=== PATIENT | female | born 1965 | race Two or more races ===

== ENCOUNTER 2022-09-24 09:45 | Outpatient (REF) | payer BC, SELFPAY ==
--- NOTE | ~2022-09-24 | MR_ITS ---
EXAMINATION: MR CERVICAL SPINE WITHOUT CONTRAST CLINICAL INFORMATION: 56-year-old with self-reported neck pain, tension headaches, right arm pain and tingling in the fingers. Cervical disc disease. COMPARISON: None TECHNIQUE: MRI of the cervical spine was obtained using routine sequences without contrast. FINDINGS: Alignment: Slight retrolisthesis noted at C5-C6. Cervical lordotic curvature is maintained. Craniocervical Junction/C1-C2 Articulations: Intact and aligned. Visualized Intracranial Structures: Incidental note is made of generalized diffuse cerebellar volume loss, which appears out of proportion to the visualized supratentorial structures. Recommend neurological correlation for this finding. Vertebral Bodies: Mild chronic loss of height along the superior endplate of T1. Otherwise vertebral body heights are well-maintained. Disc Spaces and Endplates: Severe disc space height loss is noted at C5-C6 with disc desiccation and mild spondylosis. Schmorl's node noted along the inferior endplate of C5. Moderate to severe disc space height loss at C6-C7 with Schmorl's nodes, disc desiccation and minor spondylosis. There is a Schmorl's node along the superior endplate of T1. Bone Marrow: No significant marrow-replacing process or bone marrow edema. There is a subcentimeter benign vertebral hemangioma within the C7 vertebral body. C2-C3: Small central disc protrusion with mild indentation of the ventral thecal sac without cord impingement or canal stenosis. No significant DJD or neuroforaminal stenosis. C3-C4: Small central disc protrusion, with indentation of the ventral thecal sac without cord impingement or canal stenosis. Mild facet arthropathy on the left noted without significant neural foraminal stenosis. C4-C5: Broad-based central disc protrusion noted, with flattening of the ventral dural sac without cord compression or significant spinal canal stenosis. There is uncovertebral spurring with minor left-sided facet arthropathy. No significant neural foraminal stenosis. C5-C6: Broad-based disc osteophyte complex noted with effacement of the ventral dural sac resulting in mild ventral cord deformity/impingement with ligamentum flavum thickening or infolding associated with moderate central spinal canal stenosis. There is uncovertebral arthrosis bilaterally with mild to moderate facet arthropathy. There is mild left-sided and moderate right-sided neural foraminal stenosis. C6-C7: Broad-based disc protrusion is noted with bilateral uncovertebral spurring. There is flattening of the ventral dural sac without cord impingement. Ligamentum flavum thickening or infolding is noted with [id number] central spinal canal stenosis. There is mild foraminal narrowing bilaterally. Small perineural cysts are seen in both neural foramina. C7-T1: Mild posterior disc osteophyte complex noted with slight flattening the ventral dural sac without cord impingement or canal stenosis. There is uncovertebral spurring noted bilaterally with minor facet arthropathy, with mild bilateral neural foraminal stenosis. There is a 5 mm perineural cyst in the right neural foramen. Spinal Cord: The cervical and visualized upper thoracic spinal cord is normal in signal intensity throughout, without focal lesion, edema or syrinx. Extracranial Soft Tissues: The visualized extracranial head/neck soft tissues are unremarkable within the limitations of the study. MR/MR cervical spine wo con IMPRESSION: 1. Slight retrolisthesis at C5-C6 noted with discogenic degenerative changes primarily at C5-C6 and C6-C7 with multilevel central disc protrusions and disc osteophyte complexes, as described above, with mild ventral cord deformity/impingement at C5-C6 with moderate central spinal canal stenosis and [id number] spinal canal stenosis at C6-C7. 2. Multilevel DJD as described above, with mild left-sided and moderate right-sided neural foraminal stenosis at C5-C6, mild bilateral neural foraminal stenosis at C6-C7 and mild bilateral neural foraminal stenosis at C7-T1. 3. Generalized diffuse cerebellar volume loss, which appears out of proportion to the included supratentorial structures. Recommend neurological correlation for this finding and consider MRI of the brain for further assessment if clinically warranted.
== END 2022-09-24 09:46 | disposition home or self-care (01) ==
LOC: HO.MRI 09:45
PROVIDERS: PCP Internal Medicine; Visit Provider Psychiatry & Neurology Neurology
DX: M50.90 Cervical disc disorder, unspecified, unspecified cervical region (principal)
CPT/HCPCS: 72141